=== PATIENT | male | born 1970 | race African-American/Black ===

== ENCOUNTER 2019-09-04 00:31 | Emergency (ER) | payer OTHER ==
[~2019-09-04] VITALS: Ht 190.5 cm; Wt 100.0 kg
[2019-09-04] MEDS ORDERED: SODIUM CHLORIDE 0.9% 1,000 ML IV ONE (01:00)
[2019-09-04] MEDS ORDERED: BACITRACIN ZINC OINT UDPKT TOP ONE (01:00)
[2019-09-04] MEDS ORDERED: TETANUS, DIPHTHERIA, PERTUSSIS VAC/PF 0.5ML (>7YR OLD) IM ONE (01:00)
[2019-09-04] MEDS ORDERED: ACETAMINOPHEN 325MG TABLET PO ONE (01:00)
[2019-09-04 03:28] VITALS: BP 125/87
== END 2019-09-04 03:31 | disposition home or self-care (01) ==
LOC: ER 00:31
DX: S00.83XA Contusion of other part of head, initial encounter (principal); S00.03XA Contusion of scalp, initial encounter; M25.512 Pain in left shoulder; F10.229 Alcohol dependence with intoxication, unspecified; W18.39XA Other fall on same level, initial encounter; Y93.89 Activity, other specified; Y92.89 Other specified places as the place of occurrence of the external cause; Y99.8 Other external cause status; Y90.8 Blood alcohol level of 240 mg/100 ml or more
CPT/HCPCS: 36415; 70450; 73030; 80320; 90471; 90715; 99285; J7030; G0480